=== PATIENT | female | born 1985 | race Caucasian/White ===

== ENCOUNTER → 2019-07-11 11:20 | Outpatient (BNVA) | payer SELFPAY | PROVIDERS: Visit Provider Nurse Practitioner Family | DX: N92.6 Irregular menstruation, unspecified (principal); E28.2 Polycystic ovarian syndrome | CPT/HCPCS: 81025 ==

== ENCOUNTER → 2019-11-07 10:42 | Outpatient (BNVA) | payer SELFPAY | PROVIDERS: Visit Provider Family Medicine | DX: E28.2 Polycystic ovarian syndrome (principal); Z13.1 Encounter for screening for diabetes mellitus | CPT/HCPCS: 80053; 80061; 83036; 84403; 84439; 84443; 84481 ==

== ENCOUNTER → 2021-04-23 15:40 | Outpatient (BNVA) | payer MEDICAID, SELFPAY | PROVIDERS: PCP Family Medicine; Visit Provider Family Medicine | DX: E28.2 Polycystic ovarian syndrome (principal); L70.0 Acne vulgaris; F32.9 Major depressive disorder, single episode, unspecified; M54.12 Radiculopathy, cervical region; E78.5 Hyperlipidemia, unspecified; E34.9 Endocrine disorder, unspecified; Z13.1 Encounter for screening for diabetes mellitus; J32.9 Chronic sinusitis, unspecified; B96.89 Other specified bacterial agents as the cause of diseases classified elsewhere; Z68.28 Body mass index [BMI] 28.0-28.9, adult | CPT/HCPCS: 80053; 80061; 84403 ==

== ENCOUNTER → 2021-10-01 10:57 | Outpatient (BNVA) | payer BC, MEDICAID, SELFPAY | PROVIDERS: PCP Family Medicine; Referring Provider Family Medicine; Visit Provider Nurse Practitioner Women's Health | DX: Z01.419 Encounter for gynecological examination (general) (routine) without abnormal findings (principal); E28.2 Polycystic ovarian syndrome | CPT/HCPCS: 84146; 87624 ==

== ENCOUNTER → 2021-10-11 08:13 | Outpatient (BNVA) | payer BC, MEDICAID, SELFPAY | PROVIDERS: PCP Family Medicine; Visit Provider Nurse Practitioner Women's Health | DX: N92.6 Irregular menstruation, unspecified (principal); E28.2 Polycystic ovarian syndrome; N94.6 Dysmenorrhea, unspecified | CPT/HCPCS: 76830 ==

== ENCOUNTER → 2022-02-20 11:45 | Outpatient (BNVA) | payer BC, MEDICAID, SELFPAY | PROVIDERS: PCP Family Medicine; Visit Provider Family Medicine | DX: G89.29 Other chronic pain (principal); M54.9 Dorsalgia, unspecified; M54.2 Cervicalgia | CPT/HCPCS: 72040; 72100 ==

== ENCOUNTER 2022-03-19 14:04 | Observation (INO) | payer BC, MEDICAID, SELFPAY ==
[2022-03-14 12:23] VITALS: BMI 30.1
[2022-03-14 12:57] LABS: Add Urine Microscopic? NO; Charge for UA Resulting for Rev
[2022-03-14 13:03] LABS: Basophils % 0.4 %; Eosinophils # 0.1 10^3/uL (0.0-0.8); Hematocrit 37.8 % (37.0-47.0); Hemoglobin 12.8 g/dL (11.5-15.3); Lymphocytes # 3.8 10^3/uL (0.8-4.8); Lymphocytes % 39.3 %; Mean Corpuscular HGB Conc 33.9 g/dL (30.0-36.0); Mean Corpuscular Hemoglobin 32.3 pg (28.0-34.0); Mean Corpuscular Volume 95.5 fl (81-99); Mean Platelet Volume 9.5 fL (7.4-10.4); Monocytes # 0.6 10^3/uL (0.2-0.9); Monocytes % 6.5 %; Neutrophils # 5.09 10^3/uL (1.8-7.7); Neutrophils % 52.6 %; Nucleated Red Blood Cells % 0 %; Platelet Count 303 10^3/cmm (130-400); Red Blood Count 3.96 10^6/uL (4.1-5.3); Red Cell Distribution Width 12.4 % (12.1-15.1); White Blood Count 9.7 10^3/uL (4.0-10.0)
[2022-03-14 13:05] LABS: Urine Appearance Clear (CLEAR); Urine Color Yellow (Yellow); pH Urine 6.5 (5-7)
[2022-03-14 13:06] LABS: Bilirubin Urine Neg (Negative); Blood Urine Neg (Negative); Glucose Urine UA Norm (Normal); Ketones Urine Negative (Negative); Leukocyte Esterase Urine Negative (Negative); Nitrate Urine Negative (Negative); Protein Urine Neg (Negative); Specific Gravity, Urine 1.005 (1.005-1.030); Urobilinogen Urine Neg (Negative)
[2022-03-14 13:08] LABS: OR HCG Qualitative Urine Negative (Negative)
[2022-03-14 13:23] LABS: Alanine Aminotransferase 9 U/L (0-33); Albumin Level 4.7 g/dL (3.5-5.2); Alkaline Phosphatase 54 U/L (35-105); Anion Gap 16.1 (5-19); Aspartate Amino Transferase 11 U/L (0-32); Blood Urea Nitrogen 9 mg/dL (6-20); Carbon Dioxide 24 mmol/L (22-29); Chloride 105 mmol/L (98-107); Globulin 2.7 g/dL (1.3-4.6); Glomerular Filtration Rate 94.7 mL/min (90-130); Glucose 79 mg/dL (65-115); Osmolality Calculated 290 mOsm/kg (285-295); Potassium 4.1 mmol/L (3.5-5.1); Sodium 141 mmol/L (136-145); Total Bilirubin 0.2 mg/dL (0.15-1.2); Total Protein 7.4 g/dL (6.6-8.7)
[2022-03-19] VITALS (20 sets, daily range): BP systolic 90–120; BP diastolic 52–80; PULSE 50–75; RESP 15–18; TEMP 36.1–36.7; O2SAT 93–100
[2022-03-19] MEDS: sodium chloride 0.9% 500 ML IV (09:04)
[2022-03-19] MEDS: scopolamine 1.5 Patch 1 PATCH TRANSDERMA (09:06)
[2022-03-19 09:15] LABS: OR HCG Qualitative Urine Negative (Negative)
--- NOTE | 2022-03-19 09:18 | ANES.PREANE2 ---
Pre-Anesthetic Assessment Height/Weight: Height 1.6 m Weight 77.111 kg Temp Pulse Resp BP Pulse Ox O2 Del Method 97.0 F L 75 17 116/80 99 03/19/22 08:33 03/19/22 08:33 03/19/22 08:33 03/19/22 08:33 03/19/22 08:33 03/19/22 08:34 Preop Diagnosis: HistoryChronic pelvic pain, stress urinary incontinence, dyspareunia Operation Date: 03/19/22 09:10 Proposed Procedures p Laparoscopic Assist Vaginal Hysterectomy 76607,R10.2,N93.9(Not Applicable) - Julio Olson MD Familial anesthetic complications: none Was Beta Eda taken within 24 hours: N/A Was Clonidine taken within 24 hours: N/A Last intake: Intake Last Liquid Date 03/18/22 Last Liquid Time 23:00 Last Solid Date 03/18/22 Last Solid Time 23:00 Social No alcohol Exam alert, oriented x 3, clear to auscultation bilaterally and regular rate & rhythm Airway Mallampati: Class II Dentition: full GI Gastroesophageal Reflux Disease Metabolic PCOS Neuropsych Anxiety and Depression Anesthetic Plan ASA status: 3 Anesthesia: General Risk of > 500 ml blood loss (7ml/kg in children): No Medications/Allergies Home Medications Medication Instructions Recorded Confirmed Last Taken Type acetaminophen 325 mg capsule 325 mg PO QID PRN Mild Pain (Scale 10/01/21 03/14/22 Unknown History (Tylenol) Score 1-4) ibuprofen 200 mg tablet 200 mg PO Q6H PRN Moderate Pain 10/01/21 03/14/22 Unknown History (Scale Score 5-6) norethindrone acetate 5 mg tablet 5 mg PO DAILY #90 tabs 10/16/21 03/19/22 03/19/22 06:00 Rx citalopram 40 mg tablet 40 mg PO DAILY 90 days #90 tabs 02/03/22 03/19/22 03/19/22 06:00 Rx gabapentin 800 mg tablet 800 mg PO TID 90 days #270 tabs 02/03/22 03/19/22 03/19/22 06:00 Rx levocetirizine 5 mg tablet 5 mg PO DAILY 02/03/22 03/19/22 03/18/22 21:00 History omeprazole 20 mg capsule,delayed 20 mg PO DAILY 90 days #90 caps 02/03/22 03/19/22 03/19/22 06:00 Rx release spironolactone 50 mg tablet 50 mg PO BID 90 days #180 tabs 02/03/22 03/19/22 03/19/22 06:00 Rx dicyclomine 20 mg tablet 20 mg PO BID PRN Spasms 03/19/22 03/14/22 Unknown History Allergies Allergy/AdvReac Type Severity Reaction Status Date / Time No Known Allergies Allergy Verified 03/19/22 08:27 Current Medications Generic Name Dose Route Start Last Admin Trade Name Freq PRN Reason Stop Dose Admin Sodium Chloride 500 mls @ 500 mls/hr 03/19/22 08:20 03/19/22 09:04 Sodium Chloride 0.9% IV 03/19/22 09:19 500 mls/hr ONCE ONE Administration [facility] Anesthesia Medical History Cervical high risk human papillomavirus (HPV) DNA test positive (~2016) Chronic pain previous patient at pain clinic-- mostly back pain Depression Dysmenorrhea MARIA EUGENIA (generalized anxiety disorder) No pertinent past medical history neghx: dm, htn, thyroid, dvt/pe PCP: Olinda Ross Polycystic ovary syndrome (~2020) Right cervical radiculopathy Right hand pain Seasonal allergies Surgical History H/O section 1)-- 2005. Emergent due to NRFHR 2)-- 2010. Repeat 3)-- 2012. Repeat with tubal ligation. H/O tubal ligation (~2012) History of ear surgery right eardrum repair Hx of tonsillectomy Hx of tympanostomy tubes Family History Grandmother Diabetes paternal Stroke maternal Ovarian cancer maternal Mother Hyperlipidemia Hypertension Cervical cancer, Onset Age: 30 hysterectomy did not have to complete chemo or radiation Family/Other Breast cancer paternal cousin dx age 20's Grandfather Cancer bladder---paternal Denies family history of Colon cancer Prostate cancer Heart disease Bleeding disorder Uterine cancer Thyroid disease Social History Smoking and tobacco status: current every day smoker (smokes 0.5 ppd ) Female Reproductive History Date of last menstrual period: 10/21/21 Data Anesthesia : 03/14/22 12:27 03/14/22 12:27 Cardiac Studies: No Data to Display
[2022-03-19] MEDS: sodium chloride 0.9% 1,000 ML 30 ML IV (09:20)
--- NOTE | 2022-03-19 09:22 | W.PM.OPSUD ---
Surgery/Procedure H&P Update DATE OF PROCEDURE: March 19, 2022 DATE H&P PERFORMED: 03/14/22 H&P UPDATE INFORMATION: I have reviewed H&P completed within last 30 days, I have examined patient prior to procedure and No changes to prior documentation PREOP DIAGNOSIS: HistoryChronic pelvic pain, stress urinary incontinence, dyspareunia PLANNED PROCEDURE: Operation Date: 03/19/22 09:10 Proposed Procedures p Laparoscopic Assist Vaginal Hysterectomy 86840,R10.2,N93.9(Not Applicable) - Julio Olson MD
[2022-03-19] MEDS: ceFOXitin 2,000 MG in sodium chloride 0.9% (plus) 50 ML 100 MG IV (09:48)
--- NOTE | 2022-03-19 12:03 | P.OP_ITS ---
Operative Report Date of procedure: March 19, 2022 Pre-op diagnosis: Preop Diagnosis HistoryChronic pelvic pain, stress urinary incontinence, dyspareunia Post-op diagnosis: Same as above Post-op findings: Retroflexed uterus Procedure done: Laparoscopic-assisted vaginal hysterectomy Specimens removed/disposition: Uterus Surgeon: Julio Olson MD Estimated blood loss (mL): 200 IV fluids (mL): 1,200 Urine output (mL): 100 Complications: None Findings: Retroverted uterus Procedure: After informed consent, the patient was taken to the operating room where general anesthesia was administered. Pre-Procedure Time-Out verifying the correct patient identity, correct procedure verified with consent, correct site and side, correct patient position, availability of correct implants and any special equipment or requirements was performed and acknowledge by the OR team. She was placed in the dorsal lithotomy position and prepped and draped in sterile fashion. The patient was examined under anesthesia and found to have a normal uterus with normal adnexa. A Faria catheter was placed in the bladder. A weighted speculum was placed in the vagina, and the anterior lip of cervix was grasped with the single toothed tenaculum. A uterine manipulator was advanced into the endocervical. Tenaculum was removed after uterine manipulator was secured. The speculum was removed from the vagina. The attention was brought to abdomen after changing gloves. The base of the umbilicus was grasped with an Allis clamp and with 2 towel clamp bilaterally tenting up the umbilicus an intraumbilical incision was made with a scalpel. While tenting up on the abdomen, a Verres needle with sleeve was admitted into the intra-abdominal cavity. A saline drop test was performed and noted to be within normal limits. Pneumoperitoneum was attained with 4 liters of carbon dioxide. The Verres needle was removed. Then a 5 mm Optiview trocar and cannula were inserted under direct visualization without complications. Trocars were removed and the laparoscope was inserted and connected to the video camera light source. A 5 mm trocar and cannula were placed in the right lower quadrant under direct visualization after infiltration of 0.5% Marcaine with epinephrine. A 5 mm trocar and cannula were placed in the left lower quadrant under direct visualization after infiltration of 0.5% Marcaine with epinephrine. The pelvic contents were visualized and noted a small uterus, deep cul-de-sac, normal bilateral fallopian tubes and ovaries, normal appendix, and both ureters were identified crossing the pelvic brim and pelvic sidewall. The left round ligament was coagulated and transected using Voyant device. The left broad ligament was opened down to the level of the uterine artery and vein. The left tubo-ovarian ligament was coagulated using Voyant and then transected. The right round ligament was coagulated and transected using Voyant, and the right broad ligament was opened down to the lev el of the right uterine artery and vein. The right tubo-ovarian ligament was coagulated and transected using Voyant. Peritoneum of the lower uterine segment was entered using Voyant, and the bladder was dissected off the lower uterine segment using blunt dissection. Careful inspection revealed complete hemostasis. A vaginal Bookwalter retractor was used to visualize the cervix. The cervix was grasped across the anterior lip with a single-toothed tenaculum and circumferentially infiltrated with 2% lidocaine with epinephrine at this time. The cervix was circumferentially excised with the scalpel. The vaginal mucosa was dissected superiorly with sharp dissection. The anterior peritoneal reflection was identified, and it was entered with Metzenbaum scissors. A posterior colpotomy was made through the cul-de-sac space. The posterior peritoneum was identified in similar fashion and Metzenbaum scissors were used to enter the cul-de-sac. At this time, a weighted speculum was placed, advanced posteriorly into the cul-de-sac. At this time, the left and right uterosacral ligaments were isolated and ligated with 0 Vicryl. The Voyant device was then used in a serial fashion up through the cardinal ligaments bilaterally. Finally, the uterine arteries were cross-clamped, cut, and ligated with the Voyant device. Voyant device was then used up through the broad ligaments superiorly and finally the uterus was rotated posteriorly. The left and right tubes were then cross- clamped and ligated with Voyant device. The uterus was excised and submitted for pathologic evaluation. At this time, instruments were removed from the patient's abdominopelvic cavity. Vaginal cuff closure and peritoneum were incorporated into one layer with 0 Vicryl suture in a continuous running interlocking fashion. Methylene blue IV was given. Hemostasis was noted to be achieved. Faria catheter was noted yielding clear robin urine. A vaginal packing with Premarin cream was placed to provide support during the healing process. The patient tolerated the procedure well and was taken to the recovery room in a stable condition. Sponge and needle counts were correct x3.
--- NOTE | 2022-03-19 12:44 | SUR.PHASEI ---
1218 PT TO PACU 5 PT AWAKES TO VOICE, IV TO RT HAND #20 PATENT TO NS 700 ML AT KVO RATE PER GRAVITY, IV PIID #20 TO LT WRIST, ID BAND TO RT WRIST PT ID'D WITH 2 IDENTIFERS, NARCISO PAD ABDOMEN IS SOFT WITH 3 SITES WITH SKIN GLUE NO BLEEDING NOTED NARCISO PAD D/I NO VAGINAL BLEEDING NOTED, MONITOR WITH SR TO SB WITH NO ECTOPY NOTED PT ON RA ON ARRIVAL, WITH GOOD RESP EFFORT, RODRÍGUEZ TO DD WITH LT BLUE URINE CLEAR TO TUBING AND BAG STATLOCK TO RT INNER THIGH, SCDS ON BILATERALL.
--- NOTE | 2022-03-19 12:46 | SUR.PHASEI ---
PT SLEEPS QUIETLY WITH NO COMPLAINTS, VSS
--- NOTE | 2022-03-19 12:47 | SUR.PHASEI ---
PT DENIES PAIN ONLY URGENCY FROM RODRÍGUEZ CATHETER, PT RATES URGENCY DISCOMFORT AT 3/10 PT SLEEPS IF NOT DISTURBED , TAKING OCC ICE CHIPS AND TOLERATING WELL.
--- NOTE | 2022-03-19 13:00 | SUR.PHASEI ---
PT SLEEPS IF NOT DISTURBED, VSS MONITOR SB TO SR NE ECTOPY, PT AWAKES EASILY REQUESTS WATER TO SIP ON, ABDOMEN SOFT WITH 3 SITES UNCHANGED NARCISO PAD IN PLACE PT TO OPS TO HOLD FOR FLOOR BED.
--- NOTE | 2022-03-19 13:18 | SUR.PHASEI ---
1306 PT TO OPS 11 PT AWAKE ALERT IN ROOM, PT TAKING SIPS OF WATER, ABDOMEN REMAINS SOFT NO BLEEDING TO NARCISO PAD OR 3 SITES TO ABDOMEN. VSS. HANDOFF TO [place]ino LU RN. PT AWAITING FLOOR BED.
--- NOTE | 2022-03-19 13:50 | ANE.PACU2 ---
Inpatient post-anesthesia follow up: Airway intact: Yes Vital signs: Temperature 97.6 F Pulse Rate 65 Respiratory Rate 17 Blood Pressure 100/74 Pulse Oximetry 99 Oxygen Delivery Me thod Room Air Oxygen Flow Rate Fraction of Inspir ed Oxygen Hydration adequate: Yes Nausea and vomiting: No Pain level: 1 Mental status: Baseline
[2022-03-19] MEDS: HYDROcodone-acetaminophen 5-325 mg Tablet PO ×2 (14:48→20:32)
[2022-03-19] MEDS: ketorolac 30 mg/mL INJ IVP ×2 (16:37→22:42)
[2022-03-19] MEDS: dextrose 5%-lactated ringers 1,000 ML 125 ML IV (16:50)
[2022-03-19] MEDS: docusate sodium 100 mg Capsule PO (17:53)
[2022-03-19] MEDS: ondansetron 2 mg/ML SDV 2 mL 4 MG IVP (18:03)
[2022-03-19] MEDS: cetylpyridinium Lozenge 1 EACH MUCOUS MEM (20:03)
[2022-03-19] MEDS: gabapentin 400 mg Capsule 800 MG PO (21:14)
[2022-03-20] MEDS: simethicone 80 mg Chew PO ×2 (00:34→08:18)
[2022-03-20] MEDS: dextrose 5%-lactated ringers 1,000 ML 125 ML IV (02:26)
[2022-03-20] MEDS: ketorolac 30 mg/mL INJ IVP (04:55)
[2022-03-20 05:05] VITALS: BP 102/66; PULSE 65; RESP 16; TEMP 36.8
[2022-03-20 05:09] LABS: Hematocrit 29.1 % (37.0-47.0); Hemoglobin 9.8 g/dL (11.5-15.3); Mean Corpuscular HGB Conc 33.7 g/dL (30.0-36.0); Mean Corpuscular Hemoglobin 32.7 pg (28.0-34.0); Mean Platelet Volume 9.7 fL (7.4-10.4); Platelet Count 240 10^3/cmm (130-400); Red Cell Distribution Width 12.4 % (12.1-15.1); White Blood Count 14.8 10^3/uL (4.0-10.0)
[2022-03-20] MEDS: HYDROcodone-acetaminophen 5-325 mg Tablet PO ×2 (06:52→13:07)
[2022-03-20] MEDS: docusate sodium 100 mg Capsule PO (08:18)
[2022-03-20] MEDS: fluticasone nasal spray 16gm Btl 2 SPRAY NASAL (08:18)
[2022-03-20] MEDS: gabapentin 400 mg Capsule 800 MG PO (08:18)
[2022-03-20] MEDS: citalopram 20 mg Tablet 40 MG PO (08:18)
[2022-03-20] MEDS: pantoprazole DR 40 mg Tablet PO (08:19)
[2022-03-20 09:05] VITALS: BP 95/52; PULSE 62; RESP 16; TEMP 36.7; O2SAT 96
[2022-03-20] MEDS: ibuprofen 800 mg tablet PO (11:57)
--- NOTE | 2022-03-20 13:03 | P.DS_ITS ---
Discharge Providers ROOF PANEL HANGER Date of Admission: 03/19/22 14:04 Date of Discharge: 03/20/22 Attending Provider at Admission: Julio Olson MD Attending Provider at Discharge: Julio Olson MD Primary Care Provider: Olinda Ross MD Reason for Visit Reason for Visit: pelvic and perineal pain Hospital Course Hospital Course Mrs. Arriola 36-year-old female with a history of chronic pelvic pain, normal uterine bleeding and dyspareunia was admitted for planned total vaginal hysterectomy. The total vaginal hysterectomy was performed without complications. Overnight observation was uneventful. She is afebrile and hemodynamically stable postoperative day 1. Tolerating diet well. Ambulating without complication. Pain well under control with medication. Counseled rega rding pelvic rest for 6 weeks (no sex, no tampons, no vaginal douches). Return to the emergency room if any fever, increased bleeding or pain. Physical Exam Narrative: GA: Alert and oriented ?3. HEENT: WNL. Heart: Regular rate and rhythm. Lungs: Clear to auscultation bilaterally. Abdomen: Bowel sounds present, nontender, minimal tenderness, incision clean and dry, no redness, pain or edema. FARM DEMONSTRATOR: No bleeding. Extremities: No edema, no cyanosis, no calves pain. Urinary Catheter Management: Faria: Cath Placed During This Visit: yes, but has since been removed by the nurse Reason for Continuing Indwelling Catheter: Decision to DC Catheter Urinary Catheter Date of Insertion: 03/19/22 Urinary Catheter Time of Insertion: : Date Urinary Catheter Removed: 03/20/22 Time Urinary Catheter Discontinued: 05:05 History History History 3 Term 3 0 Miscarriages/Ectopic 0 Living Children 3 Discharge Data Studies Completed and Pending Pending at discharge Category Date Time Status Pathology: Surgical [PTH] Routine Pth 03/19/22 12:23 Received Laboratory Results WBC 14.8 10^3/uL (4.0-10.0) H 03/20/22 05:03 RBC 3.00 10^6/uL (4.1-5.3) L 03/20/22 05:03 Hgb 9.8 g/dL (11.5-15.3) L 03/20/22 05:03 Hct 29.1 % (37.0-47.0) L 03/20/22 05:03 MCV 97.0 fl (81-99) 10/13/22 05:03 MCH 32.7 pg (28.0-34.0) 03/20/22 05:03 MCHC 33.7 g/dL (30.0-36.0) 03/20/22 05:03 RDW 12.4 % (12.1-15.1) 03/20/22 05:03 Plt Count 240 10^3/cmm (130-400) 03/20/22 05:03 MPV 9.7 fL (7.4-10.4) 03/20/22 05:03 Neut % (Auto) 52.6 % 03/14/22 12:27 Lymph % (Auto) 39.3 % 03/14/22 12:27 [place] % (Auto) 6.5 % 03/14/22 12:27 Eos % (Auto) 1.0 % 03/14/22 12:27 Baso % (Auto) 0.4 % 03/14/22 12:27 Neut # (Auto) 5.09 10^3/uL (1.8-7.7) 03/14/22 12:27 Lymph # (Auto) 3.8 10^3/uL (0.8-4.8) 03/14/22 12:27 [place] # (Auto) 0.6 10^3/uL (0.2-0.9) 03/14/22 12:27 Eos # (Auto) 0.1 10^3/uL (0.0-0.8) 03/14/22 12:27 Baso # (Auto) 0.0 10^3/uL (0.0-0.1) 03/14/22 12:27 Nucleated RBC % (auto) 0 % 03/14/22 12: Nucleated RBCs # 0.0 /100WBC 03/14/22 12:27 Sodium 141 mmol/L (136-145) 03/14/22 12:27 Potassium 4.1 mmol/L (3.5-5.1) 03/14/22 12:27 Chloride 105 mmol/L (98-107) 03/14/22 12:27 Carbon Dioxide 24 mmol/L (22-29) 03/14/22 12:27 Anion Gap 16.1 (5-19) 03/14/22 12:27 BUN 9 mg/dL (6-20) 03/14/22 12: Creatinine 0.7 mg/dL (0.5-0.9) 03/14/22 12:27 GFR Calculation 94.7 mL/min (90-130) 03/14/22 12: Glucose 79 mg/dL (65-115) 03/14/22 12: Calculated Osmolality 290 mOsm/kg (285-295) 03/14/22 12: Calcium 9.0 mg/dL (8.5-10.5) 03/14/22 12: Total Bilirubin 0.2 mg/dL (0.15-1.2) 03/14/22 12: AST 11 U/L (0-32) 03/14/22 12: ALT 9 U/L (0-33) 03/14/22 12: Alkaline Phosphatase 54 U/L (35-105) 03/14/22 12:27 Total Protein 7.4 g/dL (6.6-8.7) 03/14/22 12: Albumin 4.7 g/dL (3.5-5.2) 03/14/22 12: Globulin 2.7 g/dL (1.3-4.6) 03/14/22 12:27 Urine Color Yellow (Yellow) 03/14/22 12:30 Urine Appearance Clear (CLEAR) 03/14/22 12:30 Urine pH 6.5 (5-7) 03/14/22 12:30 Ur Specific [place] 1.005 (1.005-1.030) 03/14/22 12:30 Urine Protein Neg (Negative) 03/14/22 12:30 Urine Glucose (UA) Norm (Normal) 03/14/22 12:30 Urine Ketones Negative (Negative) 03/14/22 12:30 Urine Blood Neg (Negative) 03/14/22 12:30 Urine Nitrate Negative (Negative) 03/14/22 12:30 Urine Bilirubin Neg (Negative) 03/14/22 12:30 Urine Urobilinogen Neg mg/dL (Negative) 03/14/22 12:30 Ur Leukocyte Esterase Negative (Negative) 03/14/22 12:30 Urine HCG, Qual Negative (Negative) 03/19/22 09:13 Blood Type A Negative 03/19/22 09:20 Rho(D) Type Negative 03/19/22 09:20 Antibody Screen Negative 03/19/22 09:20 Vitals Last Vital Signs Temp 98.0 F 03/20/22 09:05 Pulse 62 03/20/22 09:05 Resp 16 03/20/22 09:05 BP 95/52 03/20/22 09:05 Pulse Ox 96 03/20/22 09:05 O2 Del Method 03/20/22 09:05 Discharge Plan Discharge Patient Disposition: Home Condition: Stable Prescriptions: New hydrocodone-acetaminophen 5-325 mg tablet 1 tab PO Q4H PRN (Reason: pain) Qty: 30 0RF acetaminophen 325 mg capsule 325 mg PO Q4H PRN (Reason: fever or pain) Qty: 60 0RF docusate sodium [Colace] 100 mg capsule 100 mg PO BID Qty: 60 0RF ibuprofen 800 mg tablet 800 mg PO TID PRN (Reason: pain) Qty: 60 0RF Continued citalopram 40 mg tablet 40 mg PO DAILY 90 Days Qty: 90 1RF gabapentin 800 mg tablet 800 mg PO TID 90 Days Qty: 270 1RF spironolactone 50 mg tablet 50 mg PO BID 90 Days Qty: 180 1RF omeprazole 20 mg capsule,delayed release(DR/EC) 20 mg PO DAILY 90 Days Qty: 90 1RF levocetirizine 5 mg tablet 5 mg PO DAILY acetaminophen [Tylenol] 325 mg capsule 325 mg PO QID PRN (Reason: Mild Pain (Scale Score 1-4)) ibuprofen 200 mg tablet 200 mg PO Q6H PRN (Reason: Moderate Pain (Scale Score 5-6)) norethindrone acetate 5 mg tablet 5 mg PO DAILY Qty: 90 1RF dicyclomine 20 mg tablet 20 mg PO BID PRN (Reason: Spasms) Discharge Orders: Discharge Order (Routine); Ordered 03/20/22 Ordered By: Julio Olson Referrals: Julio Olson MD [Physician] - 04/02/22 9:45 am (2 week post-op: 04/02/22 @9:45. 6 week post-op: 04/29/22 @2:30. ) Patient Instructions: Laparoscopic Hysterectomy (DC), OB Discharge Report, OB Laproscopic Surgery - [facility], OB Food/Drug Interaction Guide, Opioid Safety Discharge Attestations ROOF PANEL HANGER Time Spent in Discharge Care*: greater than 30 min Coding Level of Care Code Acute Wood Carver Hand for Osvaldo Arnold
[2022-03-20 13:45] VITALS: BP 101/64; PULSE 76; RESP 16; TEMP 36.9; O2SAT 97
== END 2022-03-20 13:45 | disposition home or self-care (01) ==
LOC: OBGYN 14:04
PROVIDERS: Anesthesiology; Admitting Provider Obstetrics & Gynecology; PCP Family Medicine; Visit Provider Obstetrics & Gynecology
PROC: 0UT9FZZ Resection of Uterus, Via Natural or Artificial Opening With Percutaneous Endoscopic Assistance (ICD-10-PCS; CPT 58550; principal; 2022-03-19 09:00)
DX: R10.2 Pelvic and perineal pain (principal); G89.29 Other chronic pain; N39.3 Stress incontinence (female) (male); N94.10 Unspecified dyspareunia; K21.9 Gastro-esophageal reflux disease without esophagitis; E28.2 Polycystic ovarian syndrome; F17.210 Nicotine dependence, cigarettes, uncomplicated
CPT/HCPCS: 58550; 36415; 80053; 81003; 81025; 84703; 85025; 85027; 86850; 86900; 88307; 96374; 96376; G0378; J0694; J1100; J1170; J1200; J1885; J2250; J2405; J2704; J2710; J3010; J3490; J7030; J7040; Q9968

== ENCOUNTER → 2022-04-02 10:39 | Outpatient (BNVA) | payer BC, MEDICAID, SELFPAY | PROVIDERS: PCP Family Medicine; Visit Provider Nurse Practitioner Women's Health | DX: R30.0 Dysuria (principal) | CPT/HCPCS: 81000; 87086 ==

== ENCOUNTER → 2022-08-14 09:47 | Outpatient (BNVA) | payer BC, MEDICAID, SELFPAY | PROVIDERS: PCP Family Medicine; Visit Provider Family Medicine | DX: G47.00 Insomnia, unspecified (principal); M54.12 Radiculopathy, cervical region; K21.9 Gastro-esophageal reflux disease without esophagitis; F33.1 Major depressive disorder, recurrent, moderate; M62.830 Muscle spasm of back; Z13.1 Encounter for screening for diabetes mellitus; G89.4 Chronic pain syndrome; R53.83 Other fatigue; Z13.6 Encounter for screening for cardiovascular disorders; E03.9 Hypothyroidism, unspecified; G47.10 Hypersomnia, unspecified; F51.01 Primary insomnia; R53.82 Chronic fatigue, unspecified; Z68.34 Body mass index [BMI] 34.0-34.9, adult | CPT/HCPCS: 80053; 80061; 84443; 85025; 86140 ==

== ENCOUNTER → 2022-08-27 11:27 | Outpatient (BNVA) | payer BC, MEDICAID, SELFPAY | PROVIDERS: PCP Family Medicine; Visit Provider Family Medicine | DX: G89.4 Chronic pain syndrome (principal); R53.83 Other fatigue | CPT/HCPCS: 85025 ==

== ENCOUNTER 2022-12-08 09:23 | Outpatient (CLI) | payer BC, MEDICAID, SELFPAY ==
--- NOTE | 2022-12-08 09:30 | MR_ITS ---
WS: [id number] MRI CERVICAL SPINE NONCONTRAST HISTORY: M54.12 - Radiculopathy, cervical region COMPARISON: None available. Technique: Multiplanar, multisequence noncontrast imaging of the cervical spine. Mild straightening of the normal cervical lordosis. No fracture or marrow edema. Disc spaces are well preserved. Signal within the cervical cord is normal. Visualized posterior fossa is unremarkable. Craniocervical junction, C1 and C2 relationship, odontoid process and soft tissues are normal. C2-C3: Normal. C3-C4: Normal. C4-C5: Normal. C5-C6: Normal. C6-C7: Normal. C7-T1: Very tiny central disc protrusion and mild disc bulging. Small bilateral foraminal osteophytes . Very mild narrowing of the foramina and central canal. Paraspinal soft tissue are normal. MR/MR cervical spin wo con* [id number] IMPRESSION: 1. No significant central or foraminal stenosis. 2. No fracture or marrow edema. 3. Very tiny central disc protrusion and small foraminal osteophytes at C7-T1. No significant stenosis. 4. Normal cord signal.
== END 2022-12-08 09:24 | disposition home or self-care (01) ==
LOC: RAD 09:26
PROVIDERS: PCP Family Medicine; Visit Provider Anesthesiology Pain Medicine
DX: M54.12 Radiculopathy, cervical region (principal); M50.23 Other cervical disc displacement, cervicothoracic region
CPT/HCPCS: 72141

== ENCOUNTER 2023-04-13 20:00 | Outpatient (CLI) | payer BC, MEDICAID, SELFPAY | END 2023-04-13 20:01 | disposition home or self-care (01) | LOC: SLEEP 04-14 03:49 | PROVIDERS: PCP Family Medicine; Visit Provider Family Medicine | DX: G47.10 Hypersomnia, unspecified (principal); R06.83 Snoring | CPT/HCPCS: 95810 ==

== ENCOUNTER → 2023-07-23 08:35 | Outpatient (BNVA) | payer BC, MEDICAID, SELFPAY | PROVIDERS: PCP Family Medicine; Visit Provider Family Medicine | DX: G47.00 Insomnia, unspecified (principal); F33.1 Major depressive disorder, recurrent, moderate; K58.9 Irritable bowel syndrome, unspecified; K58.1 Irritable bowel syndrome with constipation; K21.9 Gastro-esophageal reflux disease without esophagitis; M62.830 Muscle spasm of back; Z13.220 Encounter for screening for lipoid disorders; Z13.1 Encounter for screening for diabetes mellitus; F51.01 Primary insomnia; G89.4 Chronic pain syndrome; J32.9 Chronic sinusitis, unspecified | CPT/HCPCS: 80053; 80061 ==

== ENCOUNTER → 2023-12-28 09:10 | Outpatient (BNVA) | payer BC, MEDICAID, SELFPAY | PROVIDERS: PCP Family Medicine; Visit Provider Nurse Practitioner Family | DX: R39.9 Unspecified symptoms and signs involving the genitourinary system (principal); R30.0 Dysuria | CPT/HCPCS: 81000; 87086 ==

== ENCOUNTER 2024-04-12 13:43 | Observation (INO) | payer BC, MEDICAID, SELFPAY ==
[2024-04-04 10:44] LABS: Add Urine Microscopic? NO
[2024-04-04 10:46] LABS: Basophils # 0.1 10^3/uL (0.0-0.1); Basophils % 0.3 %; Eosinophils # 0.1 10^3/uL (0.0-0.8); Eosinophils % 0.9 %; Hematocrit 41.6 % (36-47); Lymphocytes # 3.4 10^3/uL (0.8-4.8); Lymphocytes % 22.3 %; Mean Corpuscular HGB Conc 32.5 g/dL (30-55); Mean Corpuscular Hemoglobin 30.7 pg (27-33); Mean Corpuscular Volume 94.5 fl (85-98); Mean Platelet Volume 9.2 fL (7.4-10.4); Monocytes # 0.9 10^3/uL (0.2-0.9); Neutrophils # 10.62 10^3/uL (1.8-7.7); Neutrophils % 70.2 %; Nucleated Red Blood Cells % 0 %; Platelet Count 353 10^3/cmm (157-399); Red Cell Distribution Width 12.6 % (12.1-15.1); White Blood Count 15.14 10^3/uL (3.29-11.43)
[2024-04-04 10:50] LABS: Bilirubin Urine Negative (Negative); Blood Urine Negative (Negative); Glucose Urine UA Negative (Normal); Ketones Urine Negative (Negative); Leukocyte Esterase Urine Negative (Negative); Nitrate Urine Negative (Negative); Protein Urine Negative (Negative); Specific Gravity, Urine 1.009 (1.005-1.030); Urine Appearance Clear (CLEAR); Urine Color Yellow (Yellow); Urobilinogen Urine 0.2 mg/dL (Negative); pH Urine 6.5 (5-7)
[2024-04-04 10:52] LABS: Charge for UA Resulting for Rev
--- NOTE | 2024-04-04 10:55 | ANES.PREANE2 ---
Pre-Anesthetic Assessment Height/Weight: Height 5 ft 2 in Preop Diagnosis: cystocele stage 2, mixed urinary incontinence Operation Date: 04/12/24 12:50 Proposed Procedures p Anterior Repair Anterior Colporrhaphy 01251, 32042, N81.10(Not Applicable) - Julio Olson MD s Sling Single Incision Midurethral Sling(Not Applicable) - Julio Olson MD Was Beta Eda taken within 24 hours: N/A Was Clonidine taken within 24 hours: N/A Social No alcohol and No tobacco Exam alert, oriented x 3, clear to auscultation bilaterally and regular rate & rhythm Airway Submandibular: within normal limits Cervical ROM: within normal limits Mallampati: Class II Dentition: full Anesthetic Plan ASA status: 2 Anesthesia: General Other: History of nausea with general anesthesia Plan for n.p.o. at midnight day before surgery History of GERD on omeprazole Current smoker Denies any cardiac issues METs greater than 4 Plan for general anesthesia Medications/Allergies Home Medications Medication Instructions Recorded Confirmed Last Taken Type dicyclomine 20 mg tablet 20 mg PO BID PRN Spasms 03/19/22 04/04/24 03/21/24 History cyclobenzaprine 5 mg tablet 10 mg (2 x 5 mg) PO TID PRN muscle 07/23/23 04/04/24 04/02/24 Rx spasm #30 tabs amitriptyline 50 mg tablet 50 mg PO .at bedtime 90 days #90 10/26/23 04/04/24 04/03/24 Rx tabs duloxetine 30 mg capsule,delayed 30 mg PO BID 90 days #180 ea 10/26/23 04/04/24 04/04/24 Rx release linaclotide 72 mcg capsule 72 mcg PO QAM 90 days #90 caps 10/26/23 04/04/24 04/03/24 Rx (Linzess) metformin 1,000 mg tablet 1,000 mg PO DAILY 90 days #90 tabs 10/26/23 04/04/24 04/04/24 Rx diclofenac sodium 1 % topical gel 4 g topical QID PRN Pain (Scale 04/04/24 04/04/24 03/28/24 History (Arthritis Pain (diclofenac)) Score 1-3) hydroxyzine HCl 25 mg tablet 25 mg PO .at bedtime insomnia 04/04/24 04/04/24 04/03/24 History omeprazole 20 mg capsule,delayed 20 mg PO DAILY 04/04/24 04/04/24 04/04/24 History release spironolactone 50 mg tablet 50 mg PO BID 04/04/24 04/04/24 04/04/24 History Allergies Allergy/AdvReac Type Severity Reaction Status Date / Time No Known Allergies Allergy Verified 04/04/24 08:56 [facility] Anesthesia Medical History Chronic pelvic pain in female Chronic pain previous patient at pain clinic-- mostly back pain Cervical high risk human papillomavirus (HPV) DNA test positive (~2016) No pertinent past medical history neghx: dm, htn, thyroid, dvt/pe PCP: Olinda Ross Seasonal allergies MARIA EUGENIA (generalized anxiety disorder) Depression Dysmenorrhea Right cervical radiculopathy Right hand pain Polycystic ovary syndrome (~2020) Surgical History Hx of hysterectomy (~03/19/22) laparoscopic assisted vaginal hysterectomy that was performed on 03/19/[address] Olson at [facility]. For chronic pelvic pain. H/O tubal ligation (~2012) H/O section 1)-- 2005. Emergent due to NRFHR 2)-- 2010. Repeat 3)-- 2012. Repeat with tubal ligation. Hx of tympanostomy tubes Hx of tonsillectomy History of ear surgery right eardrum repair Family History Grandmother Diabetes paternal Stroke maternal Ovarian cancer maternal Mother Hyperlipidemia Hypertension Cervical cancer, Onset Age: 30 hysterectomy did not have to complete chemo or radiation Family/Other Breast cancer paternal cousin dx age 20's Grandfather Cancer bladder---paternal Denies family history of Colon cancer Prostate cancer Heart disease Bleeding disorder Uterine cancer Thyroid disease Social History Smoking and tobacco/nicotine status: current every day tobacco/nicotine user Data Anesthesia 04/04/24 10:36 04/04/24 10:36 Short CBC 04/04/24 Range/Units 10:36 WBC 15.14 H (3.29-11.43) 10^3/uL Hgb 13.50 (11.27-16.99) g/dL Hct 41.6 (36-47) % MCV 94.5 (85-98) fl Plt Count 353 (157-399) 10^3/cmm Neut % (Auto) 70.2 % Neut # (Auto) 10.62 H (1.8-7.7) 10^3/uL Urine 04/04/ Range/Units 10:16 Urine Color Yellow (Yellow) Urine Appearance Clear (CLEAR) Urine pH 6.5 (5-7) Ur Specific [place] 1.009 (1.005-1.030) Urine Protein Negative (Negative) Urine Glucose (UA) Negative (Normal) Urine Ketones Negative (Negative) Urine Nitrate Negative (Negative) Urine Bilirubin Negative (Negative) Ur Leukocyte Esterase Negative (Negative) Cardiac Studies: No Data to Display
[2024-04-04 11:02] LABS: Alanine Aminotransferase 18 U/L (0-33); Albumin Level 4.6 g/dL (3.5-5.2); Alkaline Phosphatase 78 U/L (35-105); Anion Gap 13.2 (5-19); Aspartate Amino Transferase 19 U/L (0-32); Blood Urea Nitrogen 10 mg/dL (6-20); Calcium 8.9 mg/dL (8.5-10.5); Carbon Dioxide 27 mmol/L (22-29); Chloride 101 mmol/L (98-107); Globulin 2.4 g/dL (1.3-4.6); Glomerular Filtration Rate 80.3 mL/min (90-130); Glucose 115 mg/dL (65-115); Osmolality Calculated 284 mOsm/kg (285-295); Potassium 4.2 mmol/L (3.5-5.1); Sodium 137 mmol/L (136-145); Total Bilirubin 0.2 mg/dL (0.15-1.2)
[2024-04-12] VITALS (15 sets, daily range): BP systolic 106–122; BP diastolic 66–84; PULSE 71–101; RESP 12–18; TEMP 36.2–36.8; O2SAT 93–100; BMI 36.2
--- NOTE | 2024-04-12 09:42 | W.PM.OPSUD ---
Surgery/Procedure H&P Update DATE OF PROCEDURE: April 12, 2024 DATE H&P PERFORMED: 04/04/24 H&P UPDATE INFORMATION: I have reviewed H&P completed within last 30 days, I have examined patient prior to procedure and No changes to prior documentation PREOP DIAGNOSIS: cystocele stage 2, mixed urinary incontinence PLANNED PROCEDURE: Operation Date: 04/12/24 11:05 Proposed Procedures p Anterior Repair Anterior Colporrhaphy 36723, 36875, N81.10(Not Applicable) - Julio Olson MD s Sling Single Incision Midurethral Sling(Not Applicable) - Julio Olson MD
[2024-04-12] MEDS: scopolamine 1.5 Patch 1 PATCH TRANSDERMA (10:06)
[2024-04-12] MEDS: sodium chloride 0.9% 500 ML IV (10:16)
[2024-04-12] MEDS: sodium chloride 0.9% 1,000 ML 30 ML IV (10:25)
[2024-04-12] MEDS: metroNIDAZOLE IV 500 MG/100 ML PREMIX 100 MG IV (10:26)
--- NOTE | 2024-04-12 10:43 | P.ANESUD_ITS ---
Pre-Anesthetic Update Pre-Anesthetic Assessment: Date of Surgery/Procedure: 04/12/24 Preop Leila gnosis: cystocele stage 2, mixed urinary incontinence Proposed Procedure: Operation Date: 04/12/24 11:05 Proposed Procedures p Anterior Repair Anterior Colporrhaphy 55394, [id number], N81.10(Not Applicable) - Julio Olson MD s Sling Single Incision Midurethral Sling(Not Applicable) - Julio Olson MD Any changes to Pre-Anesthetic Assessment?: No Last Intake: Intake Last Liquid Date 04/11/24 Last Liquid Time 23:30 Last Solid Date 04/11/24 Last Solid Time 23:30 Vitals: Temperature 97.1 F L 04/12/24 09:51 Temperature Source Temporal Artery S can 04/12/24 09:51 Pulse Rate 84 04/12/24 09:51 Respiratory Rate 18 04/12/24 09:51 Blood Pressure 115/72 04/12/24 09:51 Blood Pressure Yessenia n 86 04/12/24 09:51 Pulse Oximetry 98 04/12/24 09:51 Oxygen Delivery Me thod Room Air 04/12/24 09:52 Exam: Pre-Anes Outpt Exam: alert, oriented x 3, clear to auscultation bilaterally and regular rate & rhythm Cardiac Studies: No Data to Display
[2024-04-12] MEDS: ceFOXitin 2,000 mg SDV 2000 MG IVP (11:04)
[2024-04-12] MEDS: midazolam 1 mg/mL INJ 2 mL 2 MG IVP (11:05)
[2024-04-12] MEDS: lidocaine-epi 2% PF 1:200,000 20 mL SDV XX (12:36)
--- NOTE | 2024-04-12 13:27 | W.PM.BPON ---
Date of Procedure: 04/12/24 Surgeon: Julio Olson MD Salmon Gillnet Vessel Operator(s): Procedure(s) performed: Anterior colporrhaphy augmented with allograft, mid urethral sling Findings of the procedure(s): Cystocele Estimated blood loss: 100 Specimen(s) removed: Post-operative diagnosis: Status post anterior colporrhaphy and mid urethral sling
--- NOTE | 2024-04-12 13:28 | P.OP_ITS ---
Operative Report Date of procedure: April 12, 2024 Pre-op diagnosis: Mixed urinary incontinence Cystocele Post-op diagnosis: same Procedure done: Anterior colporrhaphy augmented with allograft Mid urethral sling Cystoscopy Implants: Coloplast Altis sling Surgeon: Julio Olson MD Estimated blood loss (mL): 100 IV fluids (mL): 900 Urine output (mL): 200 Complications: None Findings: Cystocele Urethral hypermobility Procedure: After obtaining informed consent, the patient was taken to the operating room and placed in the supine position, given general anesthesia, and prepped and draped in sterile fashion. The abdomen, vulva and vagina were prepped and draped in a sterile manner. A time out procedure was performed. The anterior vaginal mucosa beneath the midurethra was infiltrated with 2% lidocaine with epinephrine. A vertical midline incision was made beneath the midurethra, nearly 1.5 cm length. Careful submucosal dissection was performed bilaterally up to the interior portion of the inferior pubic ramus. The insertion of adductor longus tendon on the patient?s pubic ramus was identified as reference land rizwana. Palpated the notch along the internal edge of ischiopubic ramus where the adductor longus tendon and the inferior pubic ramus meet. The Altis single incision sling (SIS) was selected. Then the needle of the SIS inserted aiming at the location of this notch. One of the integrated self- fixating tips place onto the needle by sliding it over the end of the needle. The needle/sling assembly was inserted toward the location of identified reference notch making sure that the flat of the handle is perpendicular to the desired path. The needle was tracked along the posterior surface of the ischiopubic ramus until the midline rizwana on the mesh is approximately at the midline position under the urethra. The needle was removed and the same was repeated on the contralateral side until the appropriate sling tension under the urethra was achieved ensuring that the mesh lays flat. The needle was removed and vaginal incision was closed in a running interlocking fashion with 2-0 Vicryl. The vaginal mucosa was then injected in the midline with 2% lidocaine with epinephrine. The vaginal mucosa was scored in the midline with the Bovie approximately 1 cm medial to the urethral meatus to 1 cm distal to the vaginal cuff. This vaginal mucosa was then undermined and then incised in the midline with the Metzenbaum scissors. The lateral aspects of the vaginal mucosa were then grasped with the Allis clamps and the vaginal mucosa was then dissected off the underlying fascia with the Metzenbaum scissors. Again, there was noted to be quite a bit of oozing at the incision, which was controlled with cautery. After adequate dissection was performed, bilaterally. A Coloplast Dermis allograft was modified at time of application to fit spacea, 3 x 3 cm piece. The Co loplast allograft was placed in front of cystocele ready to be implanted facing the vagina mucosa. Suture is placed at distal end of graft and placed towards vaginal cuff. Final suture is placed on proximal portion of the graft to complete the placement overlying the bladder. Then Interrupted vertical mattress sutures of 0 Vicryl were used to elevate the cystocele superiorly. The excessive vaginal mucosa was then trimmed with the Metzenbaum scissors and the vaginal mucosa was then reapproximated in the running interlocking fashion with 2-0 Vicryl. Bludigo was given IV. Then the Faria catheter was removed and cystoscope was inserted. The bladder was filled with sterile water. Complete evaluation of the bladder mucosa was performed noting no lacerations, dimpling, tears, bleeding of the mucosa or muscular layers. Both ureteral orifices were identified. Prompt excretion of urine from both ureteral orifices was noted. Cystoscope was withdrawn. The Faria catheter was replaced. Excellent hemostasis was obtained. A vaginal pack is placed overnight as postoperative support for the vaginal tissues after graft placement and closure of vaginal incisions. Sponge, lap, needle, and instrument counts were correct times three. The patient was taken to the recovery room, awake and in stable condition.
--- NOTE | 2024-04-12 14:15 | ANE.PACU2 ---
Inpatient post-anesthesia follow up: Airway intact: Yes Vital signs: Temperature 98.1 F Pulse Rate 70 Respiratory Rate 17 Blood Pressure 110/69 Pulse Oximetry 98 Oxygen Delivery Me thod Room Air Oxygen Flow Rate 8 Fraction of Inspir ed Oxygen Hydration adequate: Yes Nausea and vomiting: No Pain level: 1 Mental status: Baseline
[2024-04-12] MEDS: ketorolac 30 mg/mL INJ IVP ×2 (14:53→21:08)
[2024-04-12] MEDS: dextrose 5%-lactated ringers 1,000 ML 125 ML IV (14:53)
[2024-04-12] MEDS: HYDROcodone-acetaminophen 5-325 mg Tablet PO (15:30)
[2024-04-12] MEDS: duloxetine 30 mg Capsule PO (18:22)
[2024-04-12] MEDS: spironolactone 25 mg Tablet 50 MG PO (18:22)
[2024-04-12] MEDS: docusate sodium 100 mg Capsule PO (18:22)
[2024-04-12] MEDS: amitriptyline 25 mg Tablet 50 MG PO (21:07)
[2024-04-12] MEDS: hyDROXYzine 25 mg Capsule PO (21:08)
[2024-04-13 01:30] VITALS: BP 108/63; PULSE 69; RESP 16; TEMP 36.7; O2SAT 98
[2024-04-13] MEDS: HYDROcodone-acetaminophen 5-325 mg Tablet PO ×2 (01:30→10:19)
[2024-04-13] MEDS: ketorolac 30 mg/mL INJ IVP (03:08)
[2024-04-13 05:58] LABS: Hematocrit 35.1 % (36-47); Mean Corpuscular HGB Conc 33.3 g/dL (30-55); Mean Corpuscular Hemoglobin 31.2 pg (27-33); Mean Corpuscular Volume 93.6 fl (85-98); Mean Platelet Volume 9.8 fL (7.4-10.4); Platelet Count 310 10^3/cmm (157-399); Red Blood Count 3.75 10^6/uL (3.85-5.65); Red Cell Distribution Width 12.6 % (12.1-15.1); White Blood Count 18.04 10^3/uL (3.29-11.43)
[2024-04-13] MEDS: docusate sodium 100 mg Capsule PO (10:14)
[2024-04-13] MEDS: pantoprazole DR 40 mg Tablet PO (10:14)
[2024-04-13] MEDS: spironolactone 25 mg Tablet 50 MG PO (10:19)
[2024-04-13] MEDS: duloxetine 30 mg Capsule PO (10:19)
--- NOTE | 2024-04-13 11:04 | PM.OBGYDC ---
Discharge Providers EXTERMINATION SUPERVISOR Date of Admission: 04/12/24 13:43 Date of Discharge: 04/13/24 Attending Provider at Admission: Julio Olson MD Attending Provider at Discharge: Julio Olson MD Primary Care Provider: Olinda Ross MD Reason for Visit Reason for Visit: N81.10 Hospital Course Hospital Course Mrs. Tyler 38-year-old female with a history of cystocele and mixed urinary incontinence. Admitted for planned anterior colporrhaphy augmented with allograft and mid urethral sling. The procedures were performed without complication. Overnight observation was uneventful. Tolerating diet well. Ambulating without difficulty. PVR within normal limits. She is afebrile hemodynamically stable postoperative day 1. She was counseled regarding pelvic rest for 6 weeks (no sex, no tampons, no vaginal douches). Return to the emergency room if any fever, increased bleeding or pain. Physical Exam Narrative: GA: Alert and oriented ?3. HEENT: WNL. Heart: Regular rate and rhythm. Lungs: Clear to auscultation bilaterally. Abdomen: Bowel sounds present, nontender. TIER IN: spotting bleeding. Extremities: No edema, no cyanosis, no calves pain. Urinary Catheter Management: Faria: Cath Placed During This Visit: yes, but has since been removed by the nurse Reason for Continuing Indwelling Catheter: Decision to DC Catheter Urinary Catheter Date of Insertion: 04/12/24 Urinary Catheter Time of Insertion: 12:25 Date Urinary Catheter Removed: 04/13/24 Time Urinary Catheter Discontinued: 05:43 History History History 3 Term 3 0 Miscarriages/Ectopic 0 Living Children 3 Discharge Data Studies Completed and Pending Laboratory Results WBC 18.04 10^3/uL (3.29-11.43) H 04/13/24 05:20 RBC 3.75 10^6/uL (3.85-5.65) L 04/13/24 05:20 Hgb 11.70 g/dL (11.27-16.99) 04/13/24 05:20 Hct 35.1 % (36-47) L 04/13/24 05:20 MCV 93.6 fl (85-98) 04/13/24 05:20 MCH 31.2 pg (27-33) 04/13/24 05:20 MCHC 33.3 g/dL (30-55) 04/13/24 05:20 RDW 12.6 % (12.1-15.1) 04/13/24 05:20 Plt Count 310 10^3/cmm (157-399) 04/13/24 05:20 MPV 9.8 fL (7.4-10.4) 04/13/24 05:20 Neut % (Auto) 70.2 % 04/04/24 10:36 Lymph % (Auto) 22.3 % 04/04/24 10:36 [place] % (Auto) 6.0 % 04/04/24 10:36 Eos % (Auto) 0.9 % 04/04/24 10:36 Baso % (Auto) 0.3 % 04/04/24 10:36 Neut # (Auto) 10.62 10^3/uL (1.8-7.7) H 04/04/24 10:36 Lymph # (Auto) 3.4 10^3/uL (0.8-4.8) 04/04/24 10:36 [place] # (Auto) 0.9 10^3/uL (0.2-0.9) 04/04/24 10:36 Eos # (Auto) 0.1 10^3/uL (0.0-0.8) 04/04/24 10:36 Baso # (Auto) 0.1 10^3/uL (0.0-0.1) 04/04/24 10:36 Nucleated RBC % (auto) 0 % 04/04/24 10:36 Nucleated RBCs # 0.0 /100WBC 04/04/24 10:36 Sodium 137 mmol/L (136-145) 04/04/24 10:36 Potassium 4.2 mmol/L (3.5-5.1) 04/04/24 10:36 Chloride 101 mmol/L (98-107) 04/04/24 10:36 Carbon Dioxide 27 mmol/L (22-29) 04/04/24 10:36 Anion Gap 13.2 (5-19) 04/04/24 10:36 BUN 10 mg/dL (6-20) 04/04/24 10:36 Creatinine 0.8 mg/dL (0.5-0.9) 04/04/24 10:36 GFR Calculation 80.3 mL/min (90-130) L 04/04/24 10:36 Glucose 115 mg/dL (65-115) 04/04/24 10:36 Calculated Osmolality 284 mOsm/kg (285-295) L 04/04/24 10:36 Calcium 8.9 mg/dL (8.5-10.5) 04/04/24 10:36 Total Bilirubin 0.2 mg/dL (0.15-1.2) 04/04/24 10:36 AST 19 U/L (0-32) 04/04/24 10:36 ALT 18 U/L (0-33) 04/04/24 10:36 Alkaline Phosphatase 78 U/L (35-105) 04/04/24 10:36 Total Protein 7.0 g/dL (6.6-8.7) 04/04/24 10:36 Albumin 4.6 g/dL (3.5-5.2) 04/04/24 10:36 Globulin 2.4 g/dL (1.3-4.6) 04/04/24 10:36 Urine Color Yellow (Yellow) 04/04/24 10:16 Urine Appearance Clear (CLEAR) 04/04/24 10:16 Urine pH 6.5 (5-7) 04/04/24 10:16 Ur Specific [place] 1.009 (1.005-1.030) 04/04/24 10:16 Urine Protein Negative (Negative) 04/04/24 10:16 Urine Glucose (UA) Negative (Normal) 04/04/24 10:16 Urine Ketones Negative (Negative) 04/04/24 10:16 Urine Blood Negative (Negative) 04/04/24 10:16 Urine Nitrate Negative (Negative) 04/04/24 10:16 Urine Bilirubin Negative (Negative) 04/04/24 10:16 Urine Urobilinogen 0.2 mg/dL (Negative) 04/04/24 10:16 Ur Leukocyte Esterase Negative (Negative) 04/04/24 10:16 Amorphous Sediment Not Reportable 04/04/24 10:16 Blood Type A Negative 04/12/24 10:00 Rho(D) Type Rh negative 04/12/24 10:00 Antibody Screen Negative 04/12/24 10:00 Vitals Last Vital Signs Temp 98.1 F 04/13/24 01:30 Pulse 69 04/13/24 01:30 Resp 16 04/13/24 01:30 BP 108/63 04/13/24 01:30 Pulse Ox 98 04/13/24 01:30 O2 Del Method Room Air 04/13/24 01:30 O2 Flow Rate 8 04/12/24 13:54 Results Labs OB ([facility]): Blood Type A Negative 04/12/24 Antibody Screen Negative 04/12/24 Hct 35.1 % (36-47) L 04/13/24 Hgb 11.70 g/dL (11.27-16.99) 04/13/24 Rho(D) Type Rh negative 04/12/24 Plt Count 310 10^3/cmm (157-399) 04/13/24 TSH 0.76 uIU/mL (0.27-4.20) 08/14/22 Micro Urine Specimen 12/28/23 Discharge Plan Discharge Patient Disposition: Home Condition: Stable Prescriptions: New hydrocodone-acetaminophen 5-325 mg tablet 1 tab PO Q4H PRN (Reason: pain) Qty: 10 0RF ibuprofen 800 mg tablet 800 mg PO TID PRN (Reason: pain) Qty: 60 0RF mirabegron 25 mg tablet extended release 24 hr 25 mg PO DAILY Qty: 30 0RF acetaminophen 325 mg capsule 325 mg PO Q4H PRN (Reason: fever or pain) Qty: 60 0RF Continued amitriptyline 50 mg tablet 50 mg PO .at bedtime 90 Days Qty: 90 2RF duloxetine 30 mg capsule,delayed release(DR/EC) 30 mg PO BID 90 Days Qty: 180 2RF Linzess 72 mcg capsule 72 mcg PO QAM 90 Days Qty: 90 2RF metformin 1,000 mg tablet 1,000 mg PO DAILY 90 Days Qty: 90 2RF Rx Instructions: WITH MEAL cyclobenzaprine 5 mg tablet See Rx Instructions .ROUTE .COMPLEX Qty: 30 0RF Dose Instruction: TAKE 1 TO 2 TABLETS BY MOUTH THREE TIMES DAILY NEEDED FOR MUSCLE SPASM . DO NOT EXCEED 6 PER 24 HOURS Rx Instructions: TAKE 1 TO 2 TABLETS BY MOUTH THREE TIMES DAILY NEEDED FOR MUSCLE SPASM . DO NOT EXCEED 6 PER 24 HOURS dicyclomine 20 mg tablet 20 mg PO BID PRN (Reason: Spasms) omeprazole 20 mg capsule,delayed release(DR/EC) 20 mg PO DAILY Rx Instructions: Take 1 capsule by mouth once daily hydroxyzine HCl 25 mg tablet 25 mg PO .at bedtime spironolactone 50 mg tablet 50 mg PO BID Rx Instructions: Take 1 tablet by mouth twice daily diclofenac sodium [Arthritis Pain (diclofenac)] 1 % gel 4 g topical QID PRN (Reason: Pain (Scale Score 1-3)) Rx Instructions: to hands Discharge Orders: Discharge Order (Routine); Ordered 04/13/24 Ordered By: Julio Olson Patient Instructions: Urinary Incontinence (GEN), Acute Wound Care (DC), Overactive Bladder (GEN), Urinary Urgency and Frequency (GEN), Bladder Sling for Women (GEN), Anterior Vaginal Repair (GEN), Opioid Safety, Post Anesthesia Care Activity Restrictions/Additional Instructions: 1. Please call [facility] on next working day to make your post-operative appointment in 2 weeks. 2. Please stay home until you come back to the clinic on first post-hospatilization check up. 3. Please follow instructions on your medications CAREFULLY. 4. If you have abdominal incision, do not cover it unless dressing is necessary because of drainage. OK to shower, but avoid bath. Leave steri-strips until they fall off. If they are still on one week after surgery, you may remove them. 5. If you had vaginal surgery or vaginal repair, Dr. Olson may instruct you to take SITZ bath. 6. Yellow, blood tinged odorous vaginal discharge is usually normal after hysterectomy or vaginal surgeries. 7. No SEXUAL INTERCOURSE, tampons, or douches until you are completely released from the post-operative care. 8. Avoid constipation by eating right and maybe using some Metamucil or Milk of Magnesia. 9. All prescription refills are given during the working hours. Please do no wait till it runs out. Call the clinic at [phone] before your medication runs out. The clinic will get in touch with your doctor to prescribe medications if necessary. 10. Please remain within 40 mile radius from our hospital because emergencies do happen now and then during the post-operative period. 11. If you have stairs at home, take one step at a time slowly and minimize the number of trips. It helps to stay in one floor for the next few days. No lifting except what you can lift by one hand until you are released from the post-operative care. 12. Driving is discouraged until you are well healed. It may be 3-4 weeks before you feel strong enough to drive. You should be able to turn and look through the rear window without pain and you should be able to push the brake pedal very hard without pain before you drive. No fast rules, but SAFETY should be your primary concern. DO NOT drive if you are on sedating medications such as narcotics. 13. Call the clinic (during working hours) to make urgent appointment or go to the Emergency room, if any of the following occurs: i. Vaginal bleeding becomes heavy, more than a period. ii. Incision becomes red and sore, or drains pus. iii. Your TEMPERATURE is over 100.4F or you have chill. iv. IV site becomes red and swollen (a little ``knot?? is usually OK) v. Persistent nausea and vomiting vi. Persistent constipation or diarrhea vii. Rash or allergic reaction to medications. Discharge Attestations EXTERMINATION SUPERVISOR Time Spent in Discharge Care*: greater than 30 min Coding Level of Care Code Acute Code for Chg [place]
[2024-04-13 12:00] VITALS: BP 102/65; PULSE 70; RESP 17; TEMP 36.7
[2024-04-13 12:05] VITALS: BP 110/69; PULSE 70; RESP 17; TEMP 36.7; O2SAT 98
== END 2024-04-13 12:05 | disposition home or self-care (01) ==
LOC: OBGYN 13:44
PROVIDERS: Admitting Provider Obstetrics & Gynecology; PCP Family Medicine; Visit Provider Obstetrics & Gynecology
PROC: 0JQC0ZZ Repair Pelvic Region Subcutaneous Tissue and Fascia, Open Approach (ICD-10-PCS; CPT 57240; principal; 2024-04-12 10:55)
PROC: (CPT 57288; 2024-04-12 10:55)
PROC: 0TJB8ZZ Inspection of Bladder, Via Natural or Artificial Opening Endoscopic (ICD-10-PCS; CPT 52000; 2024-04-12 10:55)
DX: N39.46 Mixed incontinence (principal); K21.9 Gastro-esophageal reflux disease without esophagitis; F17.200 Nicotine dependence, unspecified, uncomplicated; F41.1 Generalized anxiety disorder; F32.A Depression, unspecified; E28.2 Polycystic ovarian syndrome
CPT/HCPCS: 57240; 57288; 36415; 51798; 80053; 81003; 85025; 85027; 86850; 86900; C1713; C1762; G0378; J0694; J1100; J1885; J2250; J2405; J2704; J3010; J3490; J7030; J7040; J7121

== ENCOUNTER → 2024-07-25 09:21 | Outpatient (BNVA) | payer BC, SELFPAY | PROVIDERS: PCP Family Medicine; Visit Provider Family Medicine | DX: R53.83 Other fatigue (principal); E28.2 Polycystic ovarian syndrome; Z51.81 Encounter for therapeutic drug level monitoring; N95.1 Menopausal and female climacteric states | CPT/HCPCS: 80053; 82607; 82652; 82728; 83001; 83002; 83036; 84443; 85025 ==

== ENCOUNTER → 2024-09-28 14:16 | Outpatient (BNVA) | payer BC, SELFPAY | PROVIDERS: PCP Family Medicine; Visit Provider Student in an Organized Health Care Education/Training Program | DX: G56.03 Carpal tunnel syndrome, bilateral upper limbs (principal) | CPT/HCPCS: 73130 ==

== ENCOUNTER 2024-10-28 07:01 | Day surgery (SDC) | payer BC, MEDICAID, SELFPAY ==
[2024-10-28] VITALS (9 sets, daily range): BP systolic 122–168; BP diastolic 77–85; PULSE 54–78; RESP 12–16; TEMP 36.2–36.4; O2SAT 94–99
--- NOTE | 2024-10-28 07:45 | W.PM.OPSUD ---
Surgery/Procedure H&P Update DATE OF PROCEDURE: October 28, 2024 DATE H&P PERFORMED: 09/28/24 H&P UPDATE INFORMATION: I have reviewed H&P completed within last 30 days, I have examined patient prior to procedure and No changes to prior documentation PREOP DIAGNOSIS: Right carpal tunnel syndrome PRIMARY INDICATION FOR PROCEDURE: Right carpal tunnel syndrome PLANNED PROCEDURE: Operation Date: 10/28/24 09:05 Proposed Procedures p Carpal Tunnel Release(Right) - Obed Lenz DO
[2024-10-28] MEDS: sodium chloride 0.9% 1,000 ML 30 ML IV (07:55)
[2024-10-28] MEDS: acetaminophen 1,000 MG/100 ML PIGGYBACK 400 MG IV (07:55)
[2024-10-28] MEDS: ketorolac 30 mg/mL INJ IVP (07:57)
[2024-10-28] MEDS: scopolamine 1 mg PATCH 1 PATCH TRANSDERMA (07:59)
--- NOTE | 2024-10-28 08:18 | ANES.PREANE2 ---
Pre-Anesthetic Assessment Height/Weight: Height 1.57 m Weight 95.254 kg Temp Pulse Resp BP Pulse Ox O2 Del Method 97.6 F 67 16 122/78 99 Room Air 10/28/24 07:24 10/28/24 07:24 10/28/24 07:24 10/28/24 07:59 10/28/24 07:24 10/28/24 07:25 Preop Diagnosis: Right carpal tunnel syndrome Operation Date: 10/28/24 09:05 Proposed Procedures p Carpal Tunnel Release(Right) - Obed Lenz DO Familial anesthetic complications: None Was Beta Eda taken within 24 hours: N/A Was Clonidine taken within 24 hours: N/A Last intake: > 8 hrs Social Tobacco and No alcohol Exam alert, oriented x 3, clear to auscultation bilaterally and regular rate & rhythm Airway Mallampati: Class II Dentition: full GI Gastroesophageal Reflux Disease IBS Metabolic PCOS Anesthetic Plan ASA status: 3 Anesthesia: MAC Risk of > 500 ml blood loss (7ml/kg in children): No Medications/Allergies Home Medications ?Medication ?Instructions ?Recorded ?Confirmed ?Last Taken ?Type dicyclomine 20 mg tablet 20 mg PO BID PRN Spasms 03/19/22 10/26/24 10/27/24 History diclofenac sodium 1 % topical gel 4 g topical QID PRN Pain (Scale 04/04/24 10/26/24 10/27/24 History (Arthritis Pain (diclofenac)) Score 1-3) acetaminophen 325 mg capsule 325 mg PO Q4H PRN fever or pain 04/13/24 10/26/24 10/27/24 Rx #60 caps linaclotide 72 mcg capsule 72 mcg PO QAM 90 days #90 caps 04/25/24 10/26/24 10/27/24 Rx (Linzess) omeprazole 20 mg capsule,delayed 20 mg PO DAILY 90 days #90 caps 04/25/24 10/26/24 10/27/24 Rx release ibuprofen 800 mg tablet See Rx Instructions .Route 05/09/24 10/26/24 10/27/24 Rx .COMPLEX #60 tabs oxybutynin chloride 5 mg tablet See Rx Instructions .Route 06/14/24 10/26/24 10/27/24 Rx .COMPLEX #90 tabs hydroxyzine HCl 25 mg tablet 25 mg PO .at bedtime insomnia #30 07/25/24 10/26/24 10/27/24 Rx tabs spironolactone 50 mg tablet 50 mg PO BID 90 days #180 tabs 07/25/24 10/26/24 10/27/24 Rx progesterone micronized 100 mg 100 mg PO BEDTIME #90 caps 08/19/24 10/26/24 10/27/24 Rx capsule (Prometrium) miscellaneous medical supply See Rx Instructions miscellaneous 08/29/24 10/10/24 Unknown Rx .COMPLEX #1 ea gabapentin 300 mg capsule 300 mg PO QID PRN pain 30 days 09/21/24 10/26/24 10/27/24 Rx #120 caps methocarbamol 750 mg tablet 750 mg PO TID #90 tabs 09/21/24 10/26/24 10/27/24 Rx duloxetine 60 mg capsule,delayed 120 mg (2 x 60 mg) PO BEDTIME 30 10/10/24 10/26/24 10/27/24 Rx release days #60 caps quetiapine 25 mg tablet (Seroquel) 25 mg PO BEDTIME #30 tabs 10/10/24 10/26/24 10/27/24 Rx Allergies Allergy/AdvReac Type Severity Reaction Status Date / Time No Known Allergies Allergy Verified 09/28/24 14:40 Current Medications Generic Name Dose Route Start Last Admin Trade Name Freq PRN Reason Stop Dose Admin Sodium Chloride 1,000 mls @ 30 mls/hr 10/28/24 07:15 10/28/24 07:55 Sodium Chloride 0.9% IV 10/29/24 07:14 30 mls/hr .Q24H MONIQUE Administration PFSH Anesthesia Medical History Psychiatric care Chronic pelvic pain in female Chronic pain previous patient at pain clinic-- mostly back pain Cervical high risk human papillomavirus (HPV) DNA test positive (~2016) No pertinent past medical history neghx: dm, htn, thyroid, dvt/pe PCP: Olinda Ross Seasonal allergies MARIA EUGENIA (generalized anxiety disorder) Depression Dysmenorrhea Right cervical radiculopathy Right hand pain Polycystic ovary syndrome (~2020) Surgical History H/O cystoscopy (~04/12/24) History of midurethral sling procedure (~04/12/24) Status post anterior colporrhaphy (~04/12/24) Hx of hysterectomy (~03/19/22) laparoscopic assisted vaginal hysterectomy that was performed on 03/19/[address] Olson at [facility]. For chronic pelvic pain. H/O tubal ligation (~2012) H/O section 1)-- 2005. Emergent due to NRFHR 2)-- 2010. Repeat 3)-- 2012. Repeat with tubal ligation. Hx of tympanostomy tubes Hx of tonsillectomy History of ear surgery right eardrum repair Family History Grandmother Diabetes paternal Stroke maternal Ovarian cancer maternal Mother Hyperlipidemia Hypertension Cervical cancer, Onset Age: 30 hysterectomy did not have to complete chemo or radiation Family/Other Breast cancer paternal cousin dx age 20's Grandfather Cancer bladder---paternal Denies family history of Colon cancer Prostate cancer Heart disease Bleeding disorder Uterine cancer Thyroid disease Social History Smoking and tobacco/nicotine status: former use of tobacco/nicotine
[2024-10-28] MEDS: ceFAZolin 2,000 MG in sodium chloride 0.9% (plus) 50 ML 100 MG IV (08:29)
[2024-10-28] MEDS: ROPivacaine 0.5% SDV 30 mL 30 MG INJECTION (08:30)
[2024-10-28] MEDS: lidocaine-epi 1% PF 1:200,000 30 mL SDV 5 ML INJECTION (08:30)
--- NOTE | 2024-10-28 09:06 | W.PM.BPON ---
Date of Procedure: 10/28/2024 Surgeon: Obed Lenz DO Livestock Buyer(s): None Procedure(s) performed: Right carpal tunnel release Findings of the procedure(s): Procedure went as planned without issues or complications Estimated blood loss: 1 mL Specimen(s) removed: None Post-operative diagnosis: Right carpal tunnel syndrome
--- NOTE | 2024-10-28 09:08 | P.OP_ITS ---
Operative Report Date of procedure: October 28, 2024 Surgeon: Obed Lenz DO Procedure: Preop Diagnosis: Right Carpal Tunnel Syndrome Post-op diagnosis: Same Procedure done: 1. Right carpal tunnel release Surgeon: Obed Lenz DO Anesthesia: MAC (Local) Estimated blood loss: 1 mL Tourniquet time 5 minutes IV fluids: See anesthesia record Complications: None Findings: See operative report narrative Condition: stable Disposition: same day Brief History: Patient is a pleasant 39 year-old female with right carpal tunnel syndrome. Patient has been worked up in the outpatient setting findings and physical examination consistent with this. Patient nerve conduction studies consistent with carpal tunnel syndrome. We detailed out patient's risk benefits complication alternatives with surgical and nonsurgical treatment options. Through shared decision making, patient agrees to proceed with surgical intervention of the right carpal tunnel release . Patient understands and agrees with current plan. All questions answered. Patient elects to proceed with surgical intervention with carpal tunnel release. Procedure: Patient seen and evaluated in the preoperative holding area. Consent was reviewed and signed with patient. Correct extremity was marked. Patient was seen evaluated by the anesthesia department once cleared for surgery was brought back to the operative suite. Patient was kept on [facility] in supine position all bony prominences were well-padded patient properly secured to the bed. Right upper extremity was then placed onto an armboard. A nonsterile tourniquet was applied to the Right upper arm. Patient underwent anesthesia per the anesthesia department. Patient's Right upper extremity was then prepped and draped in standard orthopedic fashion. Final timeout performed. Patient received appropriate preoperative antibiotics. Under sterile aseptic technique patient received local anesthesia over the preplanned carpal tunnel incision site. Esmarch was used to exsanguinate the Right upper extremity and tourniquet was insufflated to 250 mmHg. A standard mini open Right carpal tunnel incision was made. Starting distally at Bolden's cardinal line in line with the fourth ray extending proximally distal to the wrist crease centered over the carpal tunnel. Sharp scalpel incision was made through skin and subcutaneous tissue. Self-retaining retractor was placed and the palmar fascia was identified. This was then split longitudinally and direct visualization of the transverse carpal ligament was then made. I then utilizing scalpel feathered through the transverse carpal ligament until I entered the floor of the transverse carpal tunnel ligament into the carpal tunnel. Next I switched to dissection scissors and completed my release of the transverse carpal ligament distally with care to protect the recurrent motor branch. I completely released into the palmar fat and until no entrapment was noted distally. Care was made to protect the superficial palmar arch during my distal dissection. Next I utilized a nasal speculum placed on top of the transverse carpal ligament and utilize this to retract the subcutaneous fat and tissue and under direct loupe magnification was able to identify the transverse carpal ligament. Next I then protected the contents of the carpal tunnel and subsequently utilizing dissection scissors under loupe magnification completely released the transverse carpal ligament proximally into the antebrachial fascia. Care was made to protect the palmar cutaneous branch by keeping my scissors curved ulnarly. Once completely released, I then placed my [place] and had appropriate decompression of the carpal tunnel proximally as well as distally. I then inspected the contents of the carpal tunnel which showed an hourglass shape of the median nerve showing its compression. No masses were noted. Tendons appeared healthy. Wound was then thoroughly irrigated. Tourniquet deflated. Hemostasis satisfactory with b ipolar electrocautery. I then closed the incision with interrupted nylon stitches. Xeroform 4 x 4's and a bulky soft dressing was applied. Patient was then awakened from anesthesia and taken to PACU in stable condition. Patient tolerated procedure without complications. Disposition: Patient taken to PACU in stable condition recovering well. Dressing clean dry and intact. Patient will receive appropriate discharge instructions as well as pain medication postoperatively. Patient to follow-up with me in the office in 2 weeks. They understand they may be weightbearing as tolerated to the right hand. Patient should keep incision clean dry and intact. Patient understands if any questions or concerns may contact the office.
--- NOTE | 2024-10-28 09:45 | ANE.PACU2 ---
Inpatient post-anesthesia follow up: Airway intact: Yes Vital signs: Temperature 97.2 F Pulse Rate 58 Respiratory Rate 16 Blood Pressure 161/85 Pulse Oximetry 96 Oxygen Delivery Me thod Room Air Oxygen Flow Rate Fraction of Inspir ed Oxygen Hydration adequate: Yes Nausea and vomiting: No Pain level: 1 Mental status: Baseline
== END 2024-10-28 09:45 | disposition home or self-care (01) ==
PROVIDERS: PCP Family Medicine; Visit Provider Student in an Organized Health Care Education/Training Program
PROC: (CPT 64721; principal; 2024-10-28 08:55)
DX: G56.01 Carpal tunnel syndrome, right upper limb (principal); K21.9 Gastro-esophageal reflux disease without esophagitis; Z87.891 Personal history of nicotine dependence
CPT/HCPCS: 64721; J0131; J0690; J1885; J2704; J2795; J3010; J7030; J9999

== ENCOUNTER 2024-11-03 22:27 | Emergency (ER) | payer BC, MEDICAID, SELFPAY ==
[2024-11-03 22:36] VITALS: BP 132/84; PULSE 104; RESP 20; TEMP 36.7; O2SAT 98; BMI 38.0
[2024-11-04 03:55] VITALS: BP 141/78; PULSE 86; RESP 16; O2SAT 98
[2024-11-04] MEDS: oxyCODONE-APAP 5-325 mg Tablet 1 TAB PO (04:46)
--- NOTE | 2024-11-04 04:53 | W.ED.EXTPRO ---
HPI - Extremity Problem General: Chief complaint: Extremity Injury, Upper Stated complaint: FAll right hand injury post surg thursday Time Seen by Provider: 11/04/24 04:00 History of Present Illness: Patient is a well-appearing 39-year-old female seen 7 days postop right carpal tunnel release surgery. Earlier in the night she fell on outstretched hand causing significant pain in the right wrist. Since then she has had decreased range of motion but is able to both flex and extend it. She also has some pain surrounding the incision site. She decided to come the emergency department because she noticed small amount of blood at the incision site and was concerned she might need new stitches or might have incurred an infection. Pain is 3 of 10 at rest, 5 of 10 with motion and she only lacks roughly 10 degrees of both extension and flexion due to the pain. Related Data Home Medications ?Medication ?Instructions ?Recorded ?Confirmed dicyclomine 20 mg tablet 20 mg PO BID PRN Spasms 03/19/22 11/01/24 diclofenac sodium 1 % topical gel 4 g topical QID PRN Pain (Scale 04/04/24 11/01/24 (Arthritis Pain (diclofenac)) Score 1-3) Previous Rx's ?Medication ?Instructions ?Recorded acetaminophen 325 mg capsule 325 mg PO Q4H PRN fever or pain 04/13/24 #60 caps linaclotide 72 mcg capsule 72 mcg PO QAM 90 days #90 caps 04/25/24 (Linzess) omeprazole 20 mg capsule,delayed 20 mg PO DAILY 90 days #90 caps 04/25/24 release ibuprofen 800 mg tablet See Rx Instructions .Route 05/09/24 .COMPLEX #60 tabs oxybutynin chloride 5 mg tablet See Rx Instructions .Route 06/14/24 .COMPLEX #90 tabs hydroxyzine HCl 25 mg tablet 25 mg PO .at bedtime insomnia #30 07/25/24 tabs spironolactone 50 mg tablet 50 mg PO BID 90 days #180 tabs 07/25/24 progesterone micronized 100 mg 100 mg PO BEDTIME #90 caps 08/19/24 capsule (Prometrium) miscellaneous medical supply See Rx Instructions miscellaneous 08/29/24 .COMPLEX #1 ea gabapentin 300 mg capsule 300 mg PO QID PRN pain 30 days 09/21/24 #120 caps methocarbamol 750 mg tablet 750 mg PO TID #90 tabs 09/21/24 duloxetine 60 mg capsule,delayed 120 mg (2 x 60 mg) PO BEDTIME 30 10/10/24 release days #60 caps quetiapine 25 mg tablet (Seroquel) 25 mg PO BEDTIME #30 tabs 10/10/24 estradiol 0.5 mg tablet 0.5 mg PO DAILY #60 tabs 11/03/24 progesterone micronized 200 mg 200 mg PO BEDTIME #60 caps 11/03/24 capsule oxycodone-acetaminophen 5 mg-325 1 tab PO Q8H PRN pain #14 tabs 11/04/24 mg tablet (Percocet) Allergies Allergy/AdvReac Type Severity Reaction Status Date / Time No Known Allergies Allergy Verified 11/01/24 08:41 PFSH ED PFS: Medical History Psychiatric care Chronic pelvic pain in female Chronic pain previous patient at pain clinic-- mostly back pain Cervical high risk human papillomavirus (HPV) DNA test positive (~2016) No pertinent past medical history neghx: dm, htn, thyroid, dvt/pe PCP: Olinda Ross Seasonal allergies MARIA EUGENIA (generalized anxiety disorder) Depression Dysmenorrhea Right cervical radiculopathy Right hand pain Polycystic ovary syndrome (~2020) Surgical History H/O cystoscopy (~04/12/24) History of midurethral sling procedure (~04/12/24) Status post anterior colporrhaphy (~04/12/24) Hx of hysterectomy (~03/19/22) laparoscopic assisted vaginal hysterectomy that was performed on 03/19/[address] Olson at [facility]. For chronic pelvic pain. H/O tubal ligation (~2012) H/O section 1)-- 2005. Emergent due to NRFHR 2)-- 2010. Repeat 3)-- 2012. Repeat with tubal ligation. Hx of tympanostomy tubes Hx of tonsillectomy History of ear surgery right eardrum repair Family History Grandmother Diabetes paternal Stroke maternal Ovarian cancer maternal Mother Hyperlipidemia Hypertension Cervical cancer, Onset Age: 30 hysterectomy did not have to complete chemo or radiation Family/Other Breast cancer paternal cousin dx age 20's Grandfather Cancer bladder---paternal Denies family history of Colon cancer Prostate cancer Heart disease Bleeding disorder Uterine cancer Thyroid disease Social History Smoking and tobacco/nicotine status: former use of tobacco/nicotine Physical Exam Const: COMMON NORMALS: no acute distress, patient oriented x3 and alert HENMT: COMMON NORMALS: normocephalic and atraumatic HEAD & SCALP: normocephalic and atraumatic Eye: COMMON NORMALS: Equal, round and reactive pupils present, EOMs intact bilaterally and no scleral icterus PUPIL: Yes Equal, round and reactive pupils present Resp: COMMON NORMALS: normal respiratory effort and No retractions Cardio: COMMON NORMALS: regular rate, regular rhythm and No murmurs present (Cardio) RATE: regular rate RHYTHM: regular rhythm GI: COMMON NORMALS: Normal to inspection, nondistended, normoactive bowel sounds present, Soft to palpation and non-tender PALPATION: Yes Soft to palpation Extremity: NARRATIVE EXTREMITY EXAM: Affected right wrist is mildly swollen and tender on the volar aspect proximal to the incision site. Incision site is clean, dry, and intact with a very scant layer of dried blood overlying. Sutures remain intact. There is no obvious deformity or swelling or erythema to implant infection or fracture. Sensation is intact distal to the pain. Neuro: COMMON NORMALS: patient oriented x3 SENSORIUM/ORIENTATION: Yes alert Skin: COMMON NORMALS: no rashes or lesions noted GENERAL SKIN EXAM: no rashes or lesions noted Course Vital Signs: Vital signs: Vital Signs Temperature 98.0 F 11/03/24 22:36 Pulse Rate 86 11/04/24 03:55 Respiratory Rate 16 11/04/24 03:55 Blood Pressure 141/78 11/04/24 03:55 Pulse Oximetry 98 11/04/24 03:55 Oxygen Delivery Me thod Room Air 11/04/24 03:55 MDM - Extremity (Nontraumatic) Medical Decision Making In summary, patient is a well-appearing 39-year-old female seen for right wrist pain which came on after falling on an outstretched hand in the setting of being 1 week postop carpal tunnel release surgery on the same affected right wrist. I do not detect any acute process warranting imaging or further workup. She will be given a very short course of pain medication and instructions to wear her brace and follow-up with her hand surgeon in 6 days as previously planned. No radiology studies performed this visit Discharge Plan Discharge Patient Disposition: Home Clinical Impression: Sprain and strain of wrist Condition: Stable Prescriptions: New oxycodone-acetaminophen [Percocet] 5-325 mg tablet 1 tab PO Q8H PRN (Reason: pain) Qty: 14 0RF No Action spironolactone 50 mg tablet 50 mg PO BID 90 Days Qty: 180 2RF Rx Instructions: Take 1 tablet by mouth twice daily hydroxyzine HCl 25 mg tablet 25 mg PO .at bedtime Qty: 30 6RF duloxetine 60 mg capsule,delayed release(DR/EC) 120 mg PO BEDTIME 30 Days Qty: 60 3RF quetiapine [Seroquel] 25 mg tablet 25 mg PO BEDTIME Qty: 30 3RF omeprazole 20 mg capsule,delayed release(DR/EC) 20 mg PO DAILY 90 Days Qty: 90 2RF Rx Instructions: Take 1 capsule by mouth once daily Linzess 72 mcg capsule 72 mcg PO QAM 90 Days Qty: 90 2RF oxybutynin chloride 5 mg tablet See Rx Instructions .ROUTE .COMPLEX Qty: 90 3RF Dose Instruction: Take 1 tablet by mouth once daily Rx Instructions: Take 1 tablet by mouth once daily progesterone micronized [Prometrium] 100 mg capsule 100 mg PO BEDTIME Qty: 90 3RF miscellaneous medical supply [facility] [place] See Rx Instructions miscellaneous .COMPLEX Qty: 1 0RF Rx Instructions: Right carpal tunnel wrist brace as directed; methocarbamol 750 mg tablet 750 mg PO TID Qty: 90 2RF gabapentin 300 mg capsule 300 mg PO QID MDD 4 caps PRN (Reason: pain) 30 Days Qty: 120 2RF ibuprofen 800 mg tablet See Rx Instructions .ROUTE .COMPLEX Qty: 60 0RF Dose Instruction: TAKE 1 TABLET BY MOUTH THREE TIMES DAILY NEEDED FOR PAIN Rx Instructions: TAKE 1 TABLET BY MOUTH THREE TIMES DAILY NEEDED FOR PAIN estradiol 0.5 mg tablet 0.5 mg PO DAILY Qty: 60 1RF Rx Instructions: take once daily progesterone micronized 200 mg capsule 200 mg PO BEDTIME Qty: 60 0RF Rx Instructions: take once nightly at bedtime dicyclomine 20 mg tablet 20 mg PO BID PRN (Reason: Spasms) diclofenac sodium [Arthritis Pain (diclofenac)] 1 % gel 4 g topical QID PRN (Reason: Pain (Scale Score 1-3)) Rx Instructions: to hands acetaminophen 325 mg capsule 325 mg PO Q4H PRN (Reason: fever or pain) Qty: 60 0RF Discharge Orders: Discharge ED (Routine); Ordered 11/04/24 Ordered By: Javier Davis Referrals: Olinda Ross MD [Primary Care Provider, [facility]] Discharge Diet: Usual diet Discharge Activity: Increase activity as tolerated Patient Instructions: Wrist Sprain (ED) Activity Restrictions/Additional Instructions: Your symptoms are consistent with wrist sprain superimposed on postsurgical inflammatory changes. There is no need for further imaging. Please wear your brace and work on your range of motion as you have been and follow-up with your hand surgeon as planned on the sixth Print Language: Swedish Coding Level of Care Code ED Sales Inspector for Osvaldo Arnold
[2024-11-04 04:58] VITALS: BP 115/86; PULSE 77; RESP 16; O2SAT 97
== END 2024-11-04 05:00 | disposition home or self-care (01) ==
PROVIDERS: Emergency Provider Student in an Organized Health Care Education/Training Program; PCP Family Medicine
DX: S66.911A Strain of unspecified muscle, fascia and tendon at wrist and hand level, right hand, initial encounter (principal); Z87.891 Personal history of nicotine dependence; W19.XXXA Unspecified fall, initial encounter; Z98.890 Other specified postprocedural states
CPT/HCPCS: 99283; J9999

== ENCOUNTER → 2024-11-11 09:13 | Outpatient (BNVA) | payer BC, MEDICAID, SELFPAY | PROVIDERS: PCP Family Medicine; Visit Provider Physician Assistant | DX: S66.911A Strain of unspecified muscle, fascia and tendon at wrist and hand level, right hand, initial encounter (principal); W19.XXXA Unspecified fall, initial encounter; Z98.890 Other specified postprocedural states | CPT/HCPCS: 73110 ==

== ENCOUNTER → 2025-01-30 09:30 | Outpatient (BNVA) | payer BC, SELFPAY | PROVIDERS: PCP Family Medicine; Visit Provider Family Medicine | DX: Z13.220 Encounter for screening for lipoid disorders (principal); Z13.6 Encounter for screening for cardiovascular disorders; Z13.1 Encounter for screening for diabetes mellitus | CPT/HCPCS: 80048; 80061 ==

== ENCOUNTER → 2025-03-14 14:19 | Outpatient (BNVA) | payer BC, SELFPAY | PROVIDERS: PCP Family Medicine; Visit Provider Nurse Practitioner | DX: R30.0 Dysuria (principal); N39.0 Urinary tract infection, site not specified | CPT/HCPCS: 81000; 87086 ==

== ENCOUNTER → 2025-04-25 15:10 | Outpatient (BNVA) | payer BC, SELFPAY | PROVIDERS: PCP Family Medicine; Visit Provider Nurse Practitioner Women's Health | DX: N95.1 Menopausal and female climacteric states (principal) | CPT/HCPCS: 82670 ==

== ENCOUNTER → 2025-05-16 15:16 | Outpatient (BNVA) | payer BC, MEDICAID, SELFPAY | PROVIDERS: PCP Family Medicine; Visit Provider Nurse Practitioner Women's Health | DX: R10.20 Pelvic and perineal pain unspecified side (principal); Z90.710 Acquired absence of both cervix and uterus; N83.01 Follicular cyst of right ovary; N83.12 Corpus luteum cyst of left ovary; Z98.890 Other specified postprocedural states; N83.292 Other ovarian cyst, left side | CPT/HCPCS: 76830 ==